=== PATIENT | male | born 1995 | race Asian ===

== ENCOUNTER 2024-08-23 04:00 | Day surgery (SDC) | payer OTHER ==
[2024-08-23] VITALS (230 sets, daily range): BP systolic 35–146; BP diastolic 17–111
[~2024-08-23] VITALS: Ht 172.7 cm; Wt 74.0 kg
[~2024-08-23 04:00] MED LIST: SODIUM CHLORIDE 0.9% 1,000 ML IV PRN
[2024-08-23] MEDS ORDERED: ALBUTEROL SULFATE 2.5 MG VIAL IN PRN (07:30)
[2024-08-23] MEDS ORDERED: CYANOCOBALAMIN 500 MCG/TAB ( B12) PO PRN (07:30)
[2024-08-23] MEDS ORDERED: FAMOTIDINE 20 MG/TAB PO PRN (07:30)
[2024-08-23] MEDS ORDERED: cloNIDine HCL 0.1 MG/TAB PO PRN (07:30)
[2024-08-23] MEDS ORDERED: SCOPOLAMINE 1.5 MG DIS TD PRN (07:30)
[2024-08-23] MEDS ORDERED: LACTATED RINGER'S 1,000 ML IV PRN ×2 (07:30→09:50)
[2024-08-23] MEDS ORDERED: diazePAM 5 MG/TAB PO PRN ×2 (07:30→08:30)
[2024-08-23] MEDS ORDERED: PANTOPRAZOLE SODIUM Sesquihydr 40 MG/TAB PO PRN (07:30)
[2024-08-23] MEDS ORDERED: DEXMEDETOMIDINE HCL IN SODIUM 100 ML IV PRN (07:40)
[2024-08-23] MEDS ORDERED: ASCORBIC ACID 4,000 MG in SODIUM CHLORIDE 0.9% 1,000 ML IV SCH (08:00)
[2024-08-23 08:50] LABS: BASO% 0.8 % (0-3); EOS% 9.1 % (0-8); HEMOGLOBIN 15.4 g/dl (14.0-18.0); IMMATURE GRANULOCYTES 0.1 % (0.0-5.0); LYMPH% 27.5 % (15-41); MEAN CELL VOLUME 88.6 fL CALC (80.0-100.0); MEAN CORPUSCULAR HGB 30.3 pG CALC (26.0-32.0); MEAN CORPUSCULAR HGB CONC 34.2 g/dL CAL (32.0-36.0); MONO% 8.1 % (2-13); NEUT% 54.4 % (42-76); RED BLOOD COUNT 5.08 mill/uL (4.70-6.10); RED CELL DISTRI WIDTH 12.1 % (11.5-15.5)
[2024-08-23 09:15] LABS: ALBUMIN 4.9 g/dL (3.2-5.0); BILIRUBIN, TOTAL 0.4 mg/dL (0.2-1.3); POTASSIUM 4.1 mmol/l (3.5-5.1)
[2024-08-23] MEDS ORDERED: cloNIDine HYDROCHLORIDE 100 MCG/ML 10 ML INJ IV PRN (09:50)
[2024-08-23] MEDS ORDERED: PROPOFOL 100 ML IV PRN (09:50)
[2024-08-23] MEDS ORDERED: THIAMINE HCL 100 MG/ML 2ML VIAL IV PRN (09:50)
[2024-08-23] MEDS ORDERED: PROPOFOL 10 MG/ML 100ML VIAL IV PRN (09:50)
[2024-08-23] MEDS ORDERED: OCTREOTIDE ACETATE 100 MCG/VIAL SDV SC PRN (09:50)
[2024-08-23] MEDS ORDERED: LIDOCAINE HCL 1% (10MG/ML) 100 MG/10 ML MDV IV PRN (09:50)
[2024-08-23] MEDS ORDERED: STERILE WATER FOR IRRIGATION 1,000 ML BTL IR PRN (09:50)
[2024-08-23] MEDS ORDERED: SUCCINYLCHOLINE CHLORIDE 20 MG/ML 10ML VIAL IV PRN (09:50)
[2024-08-23] MEDS ORDERED: cloNIDine HCL 0.1 MG/TAB VT PRN (09:50)
[2024-08-23] MEDS ORDERED: diazePAM 5 MG/TAB VT PRN (09:50)
[2024-08-23] MEDS ORDERED: MAGNESIUM SULFATE HEPTAHYDRATE 100 ML IV PRN (09:50)
[2024-08-23] MEDS ORDERED: ROCURONIUM BROMIDE 10 MG/ML 5 ML VIAL IV PRN (09:50)
[2024-08-23] MEDS ORDERED: DiphenhydrAMINE HCL 50 MG/ML SDV IV PRN (09:50)
[2024-08-23] MEDS ORDERED: ONDANSETRON HCl 4 MG/2 ML SDV IV PRN ×3 (09:50→19:00)
[2024-08-23] MEDS ORDERED: NALTREXONE HCL 50 MG/TAB VT PRN (09:50)
[2024-08-23] MEDS ORDERED: LIDOCAINE HCL 1% (10MG/ML) 100 MG/10 ML MDV VT PRN ×2 (09:50)
[2024-08-23] MEDS ORDERED: MIDAZOLAM HCL 2 MG/2 ML VIAL IV PRN ×3 (09:50→17:10)
[2024-08-23] MEDS ORDERED: POTASSIUM CHLORIDE 20 MEQ/100 ML BAG IV PRN (09:50)
[2024-08-23] MEDS ORDERED: SODIUM CHLORIDE 0.9% 1,000 ML IV PRN ×2 (09:55→17:10)
[2024-08-23] MEDS ORDERED: KLONOPIN2 MG PO (15:54)
[2024-08-23] MEDS ORDERED: CLONIDINE0.1 MG PO (15:54)
[2024-08-23] MEDS ORDERED: NALTREXONE50 MG PO (15:54)
[2024-08-23] MEDS ORDERED: ACETAMINOPHEN 1,000 MG/100 ML VIAL IV PRN (19:00)
[2024-08-23] MEDS ORDERED: PROMETHAZINE HCL 25 MG in SODIUM CHLORIDE 0.9% 50 ML IV PRN (19:00)
[2024-08-23] MEDS ORDERED: PROMETHAZINE HCL 12.5 MG in SODIUM CHLORIDE 0.9% 50 ML IV PRN (19:00)
[2024-08-23] MEDS ORDERED: ACETAMINOPHEN 500 MG TAB PO PRN (19:00)
[2024-08-23] MEDS ORDERED: KETOROLAC TROMETHAMINE 30 MG/ML SDV IV PRN (19:00)
[2024-08-23] MEDS ORDERED: HALOPERIDOL LACTATE 5 MG/ML SDV IV PRN (19:00)
[2024-08-23] MEDS ORDERED: PATIENT' OWN MED CONTROLLED 1 EA DOSE IV PRN (21:00)
[2024-08-23] MEDS ORDERED: cloNIDine HCL 0.1 MG/TAB PO SCH (23:00)
[2024-08-23] MEDS ORDERED: clonazePAM 1 MG/TAB PO PRN (23:00)
[2024-08-24 03:52] VITALS: BP 102/58
[2024-08-24] MEDS ORDERED: NALTREXONE HCL 50 MG/TAB PO SCH (04:00)
[2024-08-24] MEDS ORDERED: cloNIDine HCL 0.1 MG/TAB PO PRN (04:00)
[2024-08-24] MEDS ORDERED: clonazePAM 1 MG/TAB PO PRN ×2 (04:00→08:00)
[2024-08-24 05:04] LABS: BASO% 0.1 % (0-3); IMMATURE GRANULOCYTES 0.2 % (0.0-5.0); MEAN CELL VOLUME 85.8 fL CALC (80.0-100.0); MEAN CORPUSCULAR HGB 30.1 pG CALC (26.0-32.0); MEAN CORPUSCULAR HGB CONC 35.1 g/dL CAL (32.0-36.0); MONO% 1.7 % (2-13); NEUT# 9.32 thou/uL (1.82-7.42); RED BLOOD COUNT 4.45 mill/uL (4.70-6.10)
[2024-08-24 05:10] LABS: HEMATOCRIT 38.2 % (39.0-50.0); HEMOGLOBIN 13.4 g/dl (14.0-18.0)
[2024-08-24 05:19] LABS: CREATININE 0.7 mg/dL (0.7-1.3); POTASSIUM 3.8 mmol/l (3.5-5.1); TOTAL PROTEIN 6.9 g/dL (6.3-8.2)
[2024-08-24 05:20] LABS: ALBUMIN 3.9 g/dL (3.2-5.0); BILIRUBIN, TOTAL 0.7 mg/dL (0.2-1.3)
[2024-08-24] MEDS ORDERED: ACETAMINOPHEN 325 MG/TAB PO SCH (08:00)
[2024-08-24] MEDS ORDERED: cloNIDine HCL 0.1 MG/TAB PO SCH (08:00)
[2024-08-24] MEDS ORDERED: PANTOPRAZOLE SODIUM Sesquihydr 40 MG/TAB PO SCH (08:00)
[2024-08-24] MEDS ORDERED: cloNIDine HCL 0.1 MG/TAB PO ONE (08:30)
[2024-08-24] MEDS ORDERED: POTASSIUM CHLORIDE 20 MEQ/TAB PO ONE (08:30)
[2024-08-24] MEDS ORDERED: ACETAMINOPHEN 500 MG TAB PO PRN (09:00)
[2024-08-24] MEDS ORDERED: MAGNESIUM OXIDE 400 MG/TAB PO PRN (09:00)
[2024-08-24] MEDS ORDERED: Cholecalciferol 2,000 UNIT/TAB PO PRN (09:00)
[2024-08-24 09:06] VITALS: BP 127/68
[2024-08-24] MEDS ORDERED: POTASSIUM CHLORIDE 20 MEQ/TAB PO SCH (09:30)
[2024-08-25] MEDS ORDERED: MAGNESIUM OXID500 M1 PO (13:37)
[2024-08-25] MEDS ORDERED: TORADOL PO (13:37)
== END 2024-08-24 15:39 | disposition home or self-care (01) | DRG 897 ==
LOC: MS2 04:00 → ANR 04:00 → MS2 07:47 → ANR 08:00 → MS2 15:55 → ANR 08-24 15:39
PROVIDERS: ATTEND Anesthesiology
DX: F11.20 Opioid dependence, uncomplicated (principal)
CPT/HCPCS: J1100; J1200; J2354; J2405; J2550; J2704; J3475; J3480; J3490

== ENCOUNTER 2024-08-25 10:51 | Emergency (ER) | payer OTHER ==
[~2024-08-25] VITALS: Ht 172.7 cm; Wt 61.0 kg
[~2024-08-25 10:51] MED LIST changes: +CLONIDINE0.1 MG PO; +KLONOPIN2 MG PO; +NALTREXONE50 MG PO; -SODIUM CHLORIDE 0.9% 1,000 ML IV PRN
[2024-08-25 11:00] VITALS: BP 133/90
[2024-08-25] MEDS ORDERED: SODIUM CHLORIDE 0.9% 1,000 ML IV ONE ×2 (11:05)
[2024-08-25] MEDS ORDERED: KETOROLAC TROMETHAMINE 15 MG/ML SDV IV ONE (11:15)
[2024-08-25] MEDS ORDERED: ONDANSETRON HCl 4 MG/2 ML SDV IV ONE (11:15)
[2024-08-25 11:21] LABS: BASO% 0.2 % (0-3); HEMATOCRIT 44.6 % (39.0-50.0); HEMOGLOBIN 15.5 g/dl (14.0-18.0); IMMATURE GRANULOCYTES 0.3 % (0.0-5.0); LYMPH% 14.5 % (15-41); MEAN CELL VOLUME 86.4 fL CALC (80.0-100.0); MEAN CORPUSCULAR HGB CONC 34.8 g/dL CAL (32.0-36.0); MONO% 6.4 % (2-13); NEUT# 8.16 thou/uL (1.82-7.42); NEUT% 78.6 % (42-76); RED BLOOD COUNT 5.16 mill/uL (4.70-6.10); RED CELL DISTRI WIDTH 12.3 % (11.5-15.5)
[2024-08-25 11:30] VITALS: BP 126/73
[2024-08-25 11:33] LABS: ALBUMIN 5.3 g/dL (3.2-5.0); BILIRUBIN, TOTAL 0.9 mg/dL (0.2-1.3); CREATININE 0.9 mg/dL (0.7-1.3); POTASSIUM 3.7 mmol/l (3.5-5.1)
[2024-08-25] MEDS ORDERED: clonazePAM 1 MG/TAB PO ONE (12:30)
[2024-08-25] MEDS ORDERED: LORazepam 2 MG/ML IV ONE (13:30)
[2024-08-25] MEDS ORDERED: MAGNESIUM OXID500 M1 PO (13:37)
[2024-08-25] MEDS ORDERED: TORADOL PO (13:37)
[2024-08-25 13:41] LABS: URINE BILIRUBIN - DIPSTICK Negative (NEGATIVE); URINE BLOOD DIPSTICK Negative (NEGATIVE); URINE GLUCOSE - DIPSTICK Negative (NEGATIVE); URINE KETONE 15 mg/dL (NEGATIVE); URINE LEUK ESTERASE Negative (NEGATIVE); URINE NITRITE - DIPSTICK Negative (Negative); URINE PH 6.5 (4.5-8.0); URINE PROTEIN - DIPSTICK Negative (NEG-TRACE); URINE UROBILINOGEN - DIPSTICK 0.2 E.U./dL (0.2)
[2024-08-25 13:48] LABS: URINE COLOR Yellow
[2024-08-25] MEDS ORDERED: NALTREXONE HCL 50 MG/TAB PO SCH ×2 (16:10→16:59)
[2024-08-25] MEDS ORDERED: HALOPERIDOL LACTATE 5 MG/ML SDV IV SCH (16:10)
[2024-08-25] MEDS ORDERED: cloNIDine HCL 0.1 MG/TAB PO SCH ×4 (16:12→22:00)
[2024-08-25] MEDS ORDERED: diazePAM 5 MG/TAB PO PRN ×2 (16:15→17:00)
[2024-08-25] MEDS ORDERED: LACTATED RINGER'S 1,000 ML IV PRN ×2 (16:15→17:00)
[2024-08-25 16:25] VITALS: BP 130/84
[2024-08-25 16:30] VITALS: BP 131/104
[2024-08-25 16:45] VITALS: BP 120/77
[2024-08-25] MEDS ORDERED: DEXMEDETOMIDINE HCL IN SODIUM 100 ML IV PRN (17:05)
[2024-08-25 17:15] VITALS: BP 124/88
[2024-08-26] MEDS ORDERED: NALTREXONE HCL 50 MG/TAB PO SCH (09:00)
[2024-08-26] MEDS ORDERED: cloNIDine HCL 0.1 MG/TAB PO SCH (16:12)
== END 2024-08-25 14:04 | disposition home or self-care (01) | DRG 951 ==
LOC: ED 10:51 → ED-I 15:35
PROVIDERS: Family Medicine
DX: Z76.5 Malingerer [conscious simulation] (principal)
CPT/HCPCS: J1885; J2060; J2405; J3490; Q9967

== ENCOUNTER 2024-08-25 15:35 | Observation (INO) | payer OTHER ==
[2024-08-25] VITALS (27 sets, daily range): BP systolic 97–137; BP diastolic 49–93
[~2024-08-25 15:35] MED LIST changes: +MAGNESIUM OXID500 M1 PO; +TORADOL PO
[2024-08-25] MEDS ORDERED: NALTREXONE HCL 50 MG/TAB PO SCH (17:40)
[2024-08-25] MEDS ORDERED: LACTATED RINGER'S 1,000 ML IV PRN ×2 (17:40→21:05)
[2024-08-25] MEDS ORDERED: cloNIDine HCL 0.1 MG/TAB PO SCH ×2 (17:40→22:00)
[2024-08-25] MEDS ORDERED: HALOPERIDOL LACTATE 5 MG/ML SDV IV SCH (17:40)
[2024-08-25] MEDS ORDERED: DEXMEDETOMIDINE HCL IN SODIUM 100 ML IV PRN (17:45)
[2024-08-25] MEDS ORDERED: diazePAM 5 MG/TAB PO PRN (17:45)
[2024-08-26] VITALS (19 sets, daily range): BP systolic 106–140; BP diastolic 60–90
[2024-08-26] MEDS ORDERED: NALTREXONE HCL 50 MG/TAB PO SCH (09:00)
[2024-08-26] MEDS ORDERED: ONDANSETRON HCl 4 MG/2 ML SDV IV PRN (09:20)
[2024-08-26] MEDS ORDERED: diazePAM 5 MG/TAB PO SCH (09:30)
== END 2024-08-26 10:56 | disposition home or self-care (01) | DRG 101 ==
LOC: ED-I 15:35
PROVIDERS: ADMIT Anesthesiology; ATTEND Anesthesiology
DX: R56.9 Unspecified convulsions (principal); F11.20 Opioid dependence, uncomplicated; F14.10 Cocaine abuse, uncomplicated; M79.18 Myalgia, other site; E86.0 Dehydration; Z72.0 Tobacco use
CPT/HCPCS: J1630; J2405; J3490

== ENCOUNTER 2024-08-26 22:18 | Emergency (ER) | payer SELFPAY ==
[~2024-08-26] VITALS: Ht 172.7 cm; Wt 74.4 kg
[2024-08-26 22:35] VITALS: BP 115/77
[2024-08-26] MEDS ORDERED: DiphenhydrAMINE HCL 25 MG CPLT PO ONE (22:50)
[2024-08-26 22:59] VITALS: BP 81/61
[2024-08-26 23:00] VITALS: BP 118/77
[2024-08-26 23:14] VITALS: BP 118/77
== END 2024-08-26 23:14 | disposition home or self-care (01) | DRG 951 ==
LOC: ED 22:18
DX: Z76.5 Malingerer [conscious simulation] (principal); F11.10 Opioid abuse, uncomplicated; F17.290 Nicotine dependence, other tobacco product, uncomplicated